=== PATIENT | male | born 1980 | race African-American/Black ===

== ENCOUNTER 2024-04-27 07:48 | Day surgery (SDC) | payer OTHER ==
[~2024-04-27] VITALS: Ht 182.9 cm; Wt 111.5 kg
[~2024-04-27 07:48] MED LIST: LR 1,000 ML IV SCH; Ondansetron 4 MG/2 ML VIAL IV PRN
[2024-04-27] MEDS ORDERED: MOBIC15 MG PO (08:36)
[2024-04-27] MEDS ORDERED: LIDOCAINE PATCH (08:38)
[2024-04-27 09:24] VITALS: BP 131/88; PULSE 62; TEMP 97
[2024-04-27 10:05] VITALS: BP 131/75; PULSE 59; TEMP 97.2
[2024-04-27 10:20] VITALS: BP 132/79; PULSE 52
[2024-04-27 10:35] VITALS: BP 136/55; PULSE 51
[2024-04-27 10:50] VITALS: BP 147/90; PULSE 52
--- NOTE | 2024-04-27 14:52 | NUR ---
1005: PT TO BAY 3 FROM ENDO SUITE. AMBULATED FROM CART TO RECLINER X2 ASSIST. REPORT RECEIVED FROM ENDO NURSE. PT ALERT AND ORIENTED. DENIES PAIN OR NAUSEA. REQUESTING WATER. RESTING IN RECLINER. CALL LIGHT IN REACH. FRIEND AT BEDSIDE. 1020: PT ALERT AND ORIENTED. TOLERATING WATER. DENIES PAIN AND NAUSEA. RESTING IN RECLINER. CALL LIGHT IN REACH. FRIEND AT BEDSIDE. 1030: IV DC'D AT THIS TIME. 1035: PT ALERT AND ORIENTED. TOLERATING WATER. DENIES PAIN AND NAUSEA. RESTING IN RECLINER. CALL LIGHT IN REACH. FRIEND AT BEDSIDE. 1050: PT ALERT AND ORIENTED. DENIES PAIN AND NAUSEA. RESTING IN RECLINER. CALL LIGHT IN REACH. DENIES ASSISTANCE WITH DRESSING. 1111: DR. RASMUSSEN IN TO SPEAK WITH PT. DISCHARGE EDUCATION DONE AT THIS TIME. PT STATED UNDERSTANDING OF DC INSTRUCTIONS. DC PAPERWORK GIVEN TO PT. 1115: PT AMBULATED INDEPENDENTLY FROM RECLINER TO WHEELCHAIR. PT OFF UNIT AT THIS TIME. PT DC TO HOME WITH FRIEND PER PERSONAL VEHICLE.
== END 2024-04-27 11:15 | disposition home or self-care (01) ==
LOC: SDCO 07:48
DX: Z12.11 Encounter for screening for malignant neoplasm of colon (principal); K64.0 First degree hemorrhoids
CPT/HCPCS: J2704; J7120